=== PATIENT | female | born 1960 | race Caucasian/White ===

== ENCOUNTER → 2021-11-19 10:25 | Outpatient (CLI) | payer BC, SELFPAY ==
--- NOTE | ~2021-11-19 | XR_ITS ---
XR sacrum coccyx min 2V DATE: 11/19/2021 10:54 INDICATION: Sacrococcygeal disorder TECHNIQUE: AP, angled AP and lateral views of sacrum and coccyx COMPARISON: None FINDINGS: The pubic symphysis and sacroiliac joints are intact. Hip joint spaces are symmetric and re latively preserved. No sacral or coccygeal fracture or bone destruction is evident. IMPRESSION: No significant abnormality Reviewed, dictated and finalized at location B. IMPRESSION: No significant abnormality
== END ==
PROVIDERS: PCP Family Medicine; Visit Provider Physician Assistant
DX: M53.3 Sacrococcygeal disorders, not elsewhere classified (principal)
CPT/HCPCS: 72220

== ENCOUNTER 2021-12-02 12:07 | Outpatient (CLI) | payer BC, SELFPAY ==
--- NOTE | ~2021-12-02 | MR_ITS ---
EXAMINATION: MR sacrum wo/w con DATE: 12/02/2021 13:41 INDICATION: Sacrococcygeal disorder not elsewhere classified TECHNIQUE: Magnetic resonance imaging (MRI) of the sacrum and coccyx was performed without and with 2 0 mL Multihance intravenous contrast. Sequences included sagittal PD-weighted FS FSE, coronal obliqu e T2-weighted FS FSE, coronal oblique T1-weighted FSE, oblique axial T2-weighted FS FSE and oblique a xial T1-weighted FSE. COMPARISON: Radiographs dated 11/19/2021 FINDINGS: And moderate to severe disc height loss at L4-L5 with associated fibrofatty degenerative endplate mayo nges. Otherwise normal marrow signal. Eccentric to the left disc bulge at L3-L4 and L4-L5 and mild di sc bulge at L5-S1 with annular fissures at each level. This results in mild central canal stenosis at L3-L4. Lumbar facet osteoarthritis, mild bilaterally at L3-L4, L4-L5 and moderate bilaterally at L5- S1. Mild bilateral neural foraminal stenosis at L3-L4 and L5-S1, moderate bilateral neural foraminal at L4-L5. Mild bilateral sacroiliac osteoarthritis. No erosions or associated synovitis to suggest in flammatory sacroiliitis. Mild bilateral hip osteoarthritis. 12 x 6 x 4 mm T2 hyperintense and enhanci ng somewhat tubular lesion centered in the subcutaneous fat along the distal tip of the coccyx which appears contiguous with the draining veins along the ventral margin of the sacrum and coccyx.. There is mild edema and non masslike enhancement along the posterior margin of the dorsal spiculated tip of the coccyx. The bladder and visualized portions of the bowels are unremarkable. The uterus is not id entified and has likely been surgically resected. IMPRESSION: 1. Mild edema and non masslike enhancement likely inflammatory in etiology overlying a small posterio r spiculated the tip of the coccyx with likely associated adjacent mildly dilated draining vein. Thes e findings could be seen in setting of coccydynia. 2. Lumbar spondylosis moderate to severe spondylosis at L4-L5 and otherwise mild at the visualized mi d to lower lumbar spine. Reviewed, dictated and finalized at location B. IMPRESSION: 1. Mild edema and non masslike enhancement likely inflammatory in etiology over lying a small posterior spiculated the tip of the coccyx with likely associated adjacent mildly dilated draining vein. These findings could be seen in setting of coccydynia. 2. Lumbar spondylosis moderate to severe spondylosis at L4-L5 and otherwise mil d at the visualized mid to lower lumbar spine.
[2021-12-02 12:38] LABS: Estimated Glomerular Filt Rate > 60
== END 2021-12-02 12:08 | disposition home or self-care (01) ==
PROVIDERS: PCP Family Medicine; Visit Provider Physician Assistant
DX: M53.3 Sacrococcygeal disorders, not elsewhere classified (principal); M47.896 Other spondylosis, lumbar region
CPT/HCPCS: 72197; A9577

== ENCOUNTER → 2022-08-11 08:13 | Outpatient (CLI) | payer BC, SELFPAY ==
--- NOTE | ~2022-08-11 | US_ITS ---
US axilla LT 08/11/2022 08:36 Indication: Malignant melanoma of the forearm. Evaluate axilla for lymph nodes. Procedure: High-resolution ultrasound of the left axilla Comparison: No prior studies for comparison. Findings: There are mildly prominent lymph nodes in the left axilla, all of which retain their normal fatty hilum. The largest measures 2 x 1.8 x 0.9 cm. Impression: 1: Mildly prominent left axillary lymph nodes which retain normal fatty hilum. Metastatic disease not excluded. Reviewed, dictated and finalized at location A. OR [employer] Impression: 1: Mildly prominent left axillary lymph nodes which retain normal fatty hilum. Metastatic disease not excluded.
== END ==
PROVIDERS: PCP Family Medicine
DX: C43.62 Malignant melanoma of left upper limb, including shoulder (principal)
CPT/HCPCS: 76882

== ENCOUNTER 2022-11-26 08:22 | Outpatient (CLI) | payer BC, SELFPAY ==
--- NOTE | 2022-11-30 13:34 | WPDHOMESLEEP ---
Sleep Study - Home Unattended Date of Study: 11/26/22 Ordering Provider: YAKELIN Bill Interpreting Provider: Bertha Manley MD Home Sleep Study Type: Watch PAT Height: 1.68 m Weight: 106.141 kg Body Mass Index: 37.8 Neck Circumference (inches): 15 [place]: 2 Reason for Sleep Study Snoring, waking at night and not being able to return to sleep Sleep History Estela Arias is a 62-year-old female with loud snoring. She wakes up during the night for a couple of hours. She has a difficult time returning to sleep. She does not awaken from sleep feeling short of breath. She does not awaken at night with heartburn, belching or coughing. She frequently snores and occasionally it is loud enough that others complain about it. She occasionally has trouble sleeping with a cold. She does not wake up gasping for breath at night. She does not have breathing problems at night observed by others. She frequently sweats excessively at night. She occasionally notices her heart pounding or beating irregularly at night. She rarely falls asleep during the day. She does not fall asleep involuntarily or while driving. She does not have loss of muscle tone with strong emotion. She does not have daytime difficulties due to excessive sleepiness. She does not feel paralyzed on waking or falling asleep. She rarely has vivid dreamlike scenes upon awakening or falling asleep. She does not feel afraid to go to sleep. She occasionally has nightmares. She constantly remembers her dreams. She constantly has racing thoughts. She rarely feels sad or depressed. She rarely has anxiety. She rarely has muscular tension. She rarely notices parts of her body jerking. She does not kick at night. She does not have crawling or aching feelings in her legs. She does not have any kind of leg pain at night. She does not have morning jaw pain. She occasionally grinds her teeth during sleep. She frequently is bothered by pain during the day. She rarely is awakened by pain during the night. She occasionally wakes up feeling stiff in the morning. She does not wake up with sore achy muscles. She rarely wakes up with pain in the neck and spine. Normal bedtime is 9:00 p.m. falling asleep within 10 minutes. She typically wakes once at night to go to the bathroom. After this she reads for about a 1/2 hour on her Carlos adjusting it to twice a light colors which is less bright. It takes her sometimes 30 minutes to return to sleep and sometimes as long as 3 hours. She wakes the morning by 6:15 a.m.. Her weekend schedule is similar, bedtime is between 930 and 10:00 p.m., wake-up time is 6:30 a.m.. She estimates getting somewhere between 5 and 8 interrupted hours of sleep at night occasionally as many as 9 hours of sleep. She does not take naps in the afternoon or evening. She feels better in the afternoon compared to other times of day. Despite having fragmented sleep, she often awakens feeling refreshed. Habits: Never smoked tobacco. No caffeine, alcohol or recreational substances. [facility] Past Medical History Medical History Cervical cancer H/O bone density study (~2020) Hypothyroidism (~1991) Melanoma Mixed hyperlipidemia Normal colonoscopy (~2014) Ovarian cancer (~1991) Ovarian cyst (~1979) Type 2 diabetes mellitus without complication, without long-term current use of insulin Vitamin D deficiency Surgical History Surgical History History of hysterectomy (~1991) History of mandibular surgery (~1995) Hx of appendectomy (~1979) Hx of cholecystectomy (~2008) Family History Family History Mother Diabetes mellitus Hypertension Heart disease Thyroid disease Father Depression Diabetes mellitus Heart disease Dementia Sibling Heart disease Hypertension Grandparent Depressi
[2022-11-30 13:56] VITALS: BMI 37.8
== END 2022-11-27 12:02 | disposition home or self-care (01) ==
PROVIDERS: PCP Family Medicine; Visit Provider Physician Assistant
DX: G47.10 Hypersomnia, unspecified (principal); G47.33 Obstructive sleep apnea (adult) (pediatric)
CPT/HCPCS: 95800

== ENCOUNTER 2023-05-28 10:40 | Outpatient (CLI) | payer BC, SELFPAY ==
--- NOTE | ~2023-05-28 | XR_ITS ---
XR chest 2V DATE: 05/28/2023 11:11 INDICATION: Malignant melanoma of skin TECHNIQUE: PA and lateral views COMPARISON: None FINDINGS: Normal heart size. No hilar or mediastinal enlargement. No pulmonary infiltrate or consolid ation, pleural effusion or pulmonary vascular congestion or pneumothorax is detected. There is mild anterior wedging and loss of height of T8 which appears chronic. There is levoscoliosis and mild degenerative spurring of the thoracic spine. IMPRESSION: No active cardiopulmonary Reviewed, dictated and finalized at location L. T BAND SEWER IMPRESSION: No active cardiopulmonary
== END 2023-05-28 10:41 | disposition home or self-care (01) ==
LOC: ANHIMG 10:51
PROVIDERS: PCP Family Medicine; Visit Provider Physician Assistant
DX: C43.9 Malignant melanoma of skin, unspecified (principal)
CPT/HCPCS: 71046

== ENCOUNTER 2023-11-05 09:15 | Outpatient (RCR) | payer BC, SELFPAY ==
--- NOTE | 2023-10-02 09:33 | OPREHPOC ---
Outpatient Therapy Plan of Care This is a Multidisciplinary Plan of Care that may contain components documented by all disciplines (PT, OT, and ST.) PT Problem 1 PT Problem #1 Knowledge Deficit PT Goal 1 Goal 1. Patient will perform independent HEP Target Visit 2 PT Problem 2 PT Problem #2 Impaired Functional ADLs PT Goal 1 Goal 1. Pt will void no more than 8 times a day and 1 time at night 2. Pt will be able to hold urge to void at least 30 minutes 3. Pt will report no more than 2 instances of incontinence per week. PT Problem 3 PT Problem #3 Impaired Strength PT Goal 1 Goal 1. Improve pelvic floor strength to 4/5 to decrease incontinence 2. Improve pelvic floor endurance to 10 seconds to decrease incontinence
--- NOTE | 2023-10-02 09:33 | PTOPEVAL1 ---
Assessment and note entered by Karissa Rushing DPT Evaluation Information Assessment Status Evaluation Subjective Information Pt reports urinary incontinence. Dramatically worsened in the last 3 months. Incontinence daily, usually just once and volume is small but occasionally does have to change her clothes. Notices incontinence with walking, waiting too long to void, coughing, sneezing, lifting. Voids more than 10 times a day, 1-2 times at night. Can hold urge to void 10-15 minutes depending on the situation. Not wearing pads most of the time, trying to avoid it. Pain with urination very infrequently. BM usually daily, no pain. Does report abdominal/pelvic pain and pressure with walking. Highest pain 6/10 and lowest 0/10. Previously has had pain with intercourse, tampon, and pap smear. Complete hysterectomy 1991. Reports a diagnosis of IBS but has not had many symptoms currently. Pt has been 3 times ( miscarried 1 twin of 1st ), 3 vaginal deliveries. 4th degree tear with her first. Pt reports disrupted sleep due to frequent urination, has to take breaks between activities like doing dishes and cooking in order to avoid incontinence. Patient goal: learn exercises, not leak urine as often Returns to MD in October. Reported Pain Level Pain Score 0: Self Report Assessment PT Clinical Summary The patient is presenting to skilled therapy with worsening urinary incontinence over the last 3 months and also reports a history of pelvic pain. She presents with decreased pelvic floor strength and endurance, as well as decreased core and hip strength which are contributing to her incontinence and difficulty performing all normal ADLs. She will highly benefit from skilled therapy to address these impairments in order to reduce incontinence and improve function. Plan of Care Interventions Manual Therapy,Neuro Re-education,Patient/ Caregiver Education,Therapeutic Activities, Therapeutic Exercise PT Services Indicated Yes Treatment Frequency and 1 time a week for 5 visits Duration These treatments will address the objective and functional deficits as defined above. The patient will be advanced safely and appropriately in order for t
--- NOTE | 2023-11-05 09:49 | OPREHPOC ---
Outpatient Therapy Plan of Care This is a Multidisciplinary Plan of Care that may contain components documented by all disciplines (PT, OT, and ST.) PT Problem 1 PT Problem #1 Knowledge Deficit PT Goal 1 Goal 1. Patient will perform independent HEP Target Visit 2 Progress Met PT Problem 2 PT Problem #2 Impaired Functional ADLs PT Goal 1 Goal 1. Pt will void no more than 8 times a day and 1 time at night 2. Pt will be able to hold urge to void at least 30 minutes 3. Pt will report no more than 2 instances of incontinence per week. Target Visit 5 Progress Met PT Problem 3 PT Problem #3 Impaired Strength PT Goal 1 Goal 1. Improve pelvic floor strength to 4/5 to decrease incontinence 2. Improve pelvic floor endurance to 10 seconds to decrease incontinence Target Visit 5 Progress Partially Met
--- NOTE | 2023-11-05 09:49 | PTOPDC ---
Assessment and note entered by Karissa Rushing DPT Evaluation Information Assessment Status Discharge Subjective Information Pt reports she feels therapy is helping and has not had incontinence since her first week in therapy. Can hold urge to void 20-30 minutes depending on the situation and thinks she is voiding 7 times a day and 1 time at night. Reported Pain Level Pain Score 0: Self Report Assessment PT Clinical Summary The patient has made excellent progress in therapy and reports no incontinence since her first week in therapy. She demonstrates improved pelvic floor strength and also reports an improved ability to hold urge and decreased frequency to within a normal range. Due to her progress, plan for discharge at this time. She has been educated to continue HEP to continue progressing independently and to follow up with PT and/or MD as needed. Plan of Care PT Services Indicated No
== END 2023-11-05 10:33 | disposition home or self-care (01) ==
LOC: ANHPT 09:15
PROVIDERS: PCP Family Medicine; Visit Provider Family Medicine
DX: R32 Unspecified urinary incontinence (principal)
CPT/HCPCS: 97112; 97161; 97530

== ENCOUNTER 2024-01-22 10:46 | Emergency (ER) | payer BC, SELFPAY ==
[2024-01-22 10:56] VITALS: BP 145/72; PULSE 61; RESP 16; TEMP 36.2; O2SAT 98
--- NOTE | 2024-01-22 10:58 | ED.EXTPRO ---
HPI - Extremity Problem General Chief complaint: Extremity Problem,Nontraumatic Stated complaint: left knee pain Time Seen by Provider: 01/22/24 11:19 Source: patient, RN notes reviewed and old records reviewed Mode of arrival: ambulatory Limitations: no limitations History of Present Illness HPI Narrative: 63 year female presents to the [facility] with complaints of left knee pain for several weeks, worse today. Pain is worse with standing. Does have good range of motion. Mild swelling noted to the medial aspect. Patient did tape it. No bruising noted. No tenderness to palpation Related Data Home Medications Medication Instructions Recorded Confirmed magnesium glycinate 100 mg (as 250 mg PO DAILY 05/22/22 01/22/24 glycinate) tablet omega-3 fatty acids-fish oil 360 1 cap PO BID 05/22/22 01/22/24 mg-1,200 mg capsule (Fish Oil) ascorbate calcium (vitamin C) 500 500 mg PO DAILY 08/25/23 01/22/24 mg tablet lactobacillus combination no.4 3 3,000 mmu cells PO DAILY 08/25/23 01/22/24 billion cell capsule (Probiotic) Allergies Allergy/AdvReac Type Severity Reaction Status Date / Time latex AdvReac Mild RASH Verified 01/22/24 10:55 Sulfa (Sulfonamide AdvReac Mild Rash Verified 01/22/24 10:55 Antibiotics) flu shots Allergy Severe Anaphylaxis Uncoded 01/22/24 10:55 Review of Systems Review of Systems: All systems reviewed & are unremarkable except as noted in HPI and below Constitutional: Constitutional: Reports no additional constitutional complaints Eyes: Eyes: Reports no additional eye complaints ENT: Reports system reviewed and no additional complaints, except as documented Cardiovascular: Cardiovascular: Reports no additional cardiovascular complaints, Denies chest pain and Denies dyspnea Respiratory: Respiratory: Reports no additional respiratory complaints, Denies chest congestion, Denies cough and Denies dyspnea Gastrointestinal: Gastrointestinal: Reports no additional gastrointestinal complaints, Denies abdominal pain, Denies nausea and Denies vomiting Musculoskeletal: Musculoskeletal: Reports as per HPI, Reports arthralgias and Reports joint swelling Integumentary/Breasts: Skin/Breast: Reports system reviewed and no additional complaints, except as docu Neurologic: Reports system reviewed and no additional complaints, except as documented Psychiatric: Psychiatric: Reports no additional psychiatric complaints Allergic/Immunologic: Allergic/Immunologic: Reports no additional allergic/immunologic complaints PMFSH Past Medical History Medical History Body mass index (BMI) of 38.0 to 38.9 in adult Cervical cancer H/O bone density study (~2020) Hypothyroidism (~1991) Malignant melanoma of left forearm Melanoma Mixed hyperlipidemia Normal colonoscopy (~2014) Ovarian cancer (~1991) Ovarian cyst (~1979) Type 2 diabetes mellitus without complication, without long-term current use of insulin Vitamin D deficiency Surgical History Surgical History History of hysterectomy (~1991) History of mandibular surgery (~1995) Hx of appendectomy (~1979) Hx of cholecystectomy (~2008) Family History Family History Mother Diabetes mellitus Hypertension Heart disease Thyroid disease Father Depression Diabetes mellitus Heart disease Dementia Sibling Heart disease Hypertension Grandparent Depression Heart disease Hypertension Other Family history of arthritis Social History Social History Social History: Never smoker. She does not use alcohol, marijuana, or illicit substances. Smoking status: Never smoker Second hand tobacco smoke exposure: No Alcohol intake: never Substance use: never Substance use type: does not use Do You Feel Safe in your Home?:
== END 2024-01-22 11:37 | disposition home or self-care (01) ==
PROVIDERS: Emergency Provider Nurse Practitioner; PCP Family Medicine
DX: M25.562 Pain in left knee (principal); M25.462 Effusion, left knee; E03.9 Hypothyroidism, unspecified; E78.2 Mixed hyperlipidemia; E11.9 Type 2 diabetes mellitus without complications; Z85.41 Personal history of malignant neoplasm of cervix uteri; Z85.820 Personal history of malignant melanoma of skin; Z85.43 Personal history of malignant neoplasm of ovary
CPT/HCPCS: 99212; G0463

== ENCOUNTER 2024-01-26 11:12 | Outpatient (CLI) | payer BC, SELFPAY ==
--- NOTE | ~2024-01-26 | US_ITS ---
Thyroid ultrasound. Clinical History: Nontoxic goiter Findings: Real-time sonography of the thyroid gland was performed. The right lobe measures 1.9 x 0.7 x 0.7 cm. The left lobe measures 1.9 x 0.7 x 0.9 cm. The isthmus is 2 mm in AP diameter. Impression: Small thyroid gland, without identifiable nodule.. Reviewed, dictated and finalized at location . Impression: Small thyroid gland, without identifiable nodule..
== END 2024-01-26 11:13 ==
PROVIDERS: PCP Family Medicine; Visit Provider Internal Medicine Endocrinology, Diabetes & Metabolism
DX: E04.9 Nontoxic goiter, unspecified (principal); Z80.8 Family history of malignant neoplasm of other organs or systems
CPT/HCPCS: 76536

== ENCOUNTER 2024-04-29 13:19 | Emergency (ER) | payer BC, SELFPAY ==
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
[2024-04-29 13:21] VITALS: BP 138/99; PULSE 74; RESP 18; TEMP 36.4; O2SAT 98
[2024-04-29 13:34] VITALS: BP 154/83; PULSE 63; RESP 18; TEMP 36.5; O2SAT 95
[2024-04-29 14:30] VITALS: BP 128/70; PULSE 59; RESP 16; O2SAT 98
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
[2024-04-29] MEDS: oxyCODONE HCL (*CRX) 5 MG TAB IR PO (15:26)
[2024-04-29] MEDS: ACETAMINOPHEN 500 MG TABLET 1000 MG PO (15:26)
[2024-04-29] MEDS: KETOROLAC (*BKC) 60 MG/2 ML VIAL IM (15:27)
[2024-04-29 15:30] VITALS: BP 153/67; PULSE 66; RESP 16; O2SAT 98
[2024-04-29 16:00] VITALS: BP 156/78; PULSE 65; RESP 16; O2SAT 100
== END 2024-04-29 16:11 | disposition home or self-care (01) ==
PROVIDERS: Emergency Provider Physician Assistant; PCP Family Medicine
DX: S52.572A Other intraarticular fracture of lower end of left radius, initial encounter for closed fracture (principal); E03.9 Hypothyroidism, unspecified; E11.9 Type 2 diabetes mellitus without complications; E78.2 Mixed hyperlipidemia; E55.9 Vitamin D deficiency, unspecified; Z85.43 Personal history of malignant neoplasm of ovary; Z85.828 Personal history of other malignant neoplasm of skin; Z85.41 Personal history of malignant neoplasm of cervix uteri; Z90.49 Acquired absence of other specified parts of digestive tract; Z90.710 Acquired absence of both cervix and uterus; Z79.899 Other long term (current) drug therapy; V18.4XXA Pedal cycle driver injured in noncollision transport accident in traffic accident, initial encounter; Y93.55 Activity, bike riding
CPT/HCPCS: 29125; 73110; 96372; 99284; A4565; A9270; J1885

== ENCOUNTER 2024-06-27 13:56 | Emergency (ER) | payer BC, SELFPAY ==
--- NOTE | ~2024-06-27 | XR_ITS ---
EXAMINATION: XR tibia fibula LT 2V DATE: 06/27/2024 16:00 INDICATION: Fall with left lower leg injury TECHNIQUE: Anteroposterior and lateral views of the left tibia and fibula were obtained. COMPARISON: None. FINDINGS: Soft tissue swelling anterior to the proximal tibia. Bone alignment is normal. No fracture. Mild oste oarthritis at the left knee. Subcutaneous varicosities along the medial aspect of the calf. IMPRESSION: 1. No acute osseous abnormality. Reviewed, dictated and finalized at location A. STICS TEACHER
[2024-06-27 14:00] VITALS: BP 166/94; PULSE 71; RESP 17; TEMP 36.4; O2SAT 98
--- NOTE | 2024-06-27 16:11 | ED.LOWEXIN ---
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 patient states she was going down her stairs and missed the last step and hit her left lower leg. patient denies hitting head or LOC. patient having lower leg pain. no other complaints Onset (ago): hour(s) (4) Type of Injury: blunt Place: home Related Data Home Medications ?Medication ?Instructions ?Recorded ?Confirmed ?Last Taken ?Type magnesium glycinate 100 mg (as 250 mg PO DAILY 05/22/22 06/21/24 Unknown History glycinate) tablet omega-3 fatty acids-fish oil 360 1 cap PO BID 05/22/22 06/21/24 Unknown History mg-1,200 mg capsule (Fish Oil) ascorbate calcium (vitamin C) 500 500 mg PO DAILY 08/25/23 06/21/24 Unknown History mg tablet lactobacillus combination no.4 3 3,000 mmu cells PO DAILY 08/25/23 06/21/24 Unknown History billion cell capsule (Probiotic) multivitamin (Daily Multi-Vitamin 1 tablet PO DAILY 05/03/24 06/21/24 Unknown History tablet) Allergies Allergy/AdvReac Type Severity Reaction Status Date / Time latex AdvReac Mild RASH Verified 06/27/24 13:56 Sulfa (Sulfonamide AdvReac Mild Rash Verified 06/27/24 13:56 Antibiotics) flu shots Allergy Severe Anaphylaxis Uncoded 06/27/24 13:56 Review of Systems Review of Systems: All systems reviewed & are unremarkable except as noted in HPI and below Musculoskeletal: Musculoskeletal: Reports as per HPI (Left lower leg pain) [facility] Past Medical History Medical History Body mass index (BMI) of 38.0 to 38.9 in adult Malignant melanoma of left forearm Melanoma H/O bone density study (~2020) Normal colonoscopy (~2014) Ovarian cyst (~1979) Cervical cancer Ovarian cancer (~1991) Mixed hyperlipidemia Hypothyroidism (~1991) Type 2 diabetes mellitus without complication, without long-term current use of insulin Vitamin D deficiency Surgical History Surgical History History of open reduction and internal fixation (ORIF) procedure Left wrist fracture 04/2024 at [facility] Hx of cholecystectomy (~2008) History of mandibular surgery (~1995) History of hysterectomy (~1991) Hx of appendectomy (~1979) Family History Family History Mother Diabetes mellitus Hypertension Heart disease Thyroid disease Father Depression Diabetes mellitus Heart disease Dementia Sibling Heart disease Hypertension Grandparent Depression Heart disease Hypertension Other Family history of arthritis Social History Social History Social History: Never smoker. She does not use alcohol, marijuana, or illicit substances. Smoking status: Never smoker Second hand tobacco smoke exposure: No Alcohol intake: never Substance use: never Substance use type: does not use Do You Feel Safe in your Home?: Yes Lack of Transportation: No Lack of Food: Never True Current Housing: I Have Housing Concerned About Future Housing: No Difficulty Paying Gas/Electric Bills: No Difficulty Paying for Meds: No Currently Unemployed: No Education: Associate Degree Difficulty w/ Childcare or Family Care: No Living arrangements: with family Occupation/Education: retired Gender identity (if verbalized by the patient): Female Exam Narrative: GENERAL: Well-appearing, well-nourished, and in no acute distress. HEAD: Normocephalic, atraumatic. EYES: PERRLA and EOMI. ENT: Nares clear, no rhinorrhea or epistaxis. Mucous membranes moist. NECK: Supple. CHEST: Clear to auscultation. No respiratory distress. HEART: Regular rate and rhythm. No murmur heard. Normal peripheral pulses. ABDOMEN: Soft, nontender, nondistended, normal active bowel sounds. EXTREMITIES: Normal range of motion. No edema. Tenderness to left lower tib/fib to lateral aspect. +pulses distal SKIN: Warm, dry, no rash. NEURO: No focal deficits. Alert and oriented x3. PSYCH: Normal mood and affect. Course Course Emergency Course: Imaging negative. Will discharge with rice therapy Vital Signs Vital signs: Vital Signs Temperature 36.4 C 06/27/24 14:00 Pulse Rate 71 06/27/24 14:00 Respiratory Rate 17 06/27/24 14:00 Blood Pressure 166/94 H 06/27/24 14:00 Pulse Oximetry 98 06/27/24 14:00 Oxygen Delivery Room Air 06/27/24 14:00 Temperature 36.4 C 06/27/24 14:00 Pulse Rate 71 06/27/24 14:00 Respiratory Rate 17 06/27/24 14:00 Blood Pressure 166/94 H 06/27/24 14:00 Pulse Oximetry 98 06/27/24 14:00 Oxygen Delivery Room Air 06/27/24 14:00 MDM - Extremity Injury (Lower) MDM Narrative Medical decision making narrative: Continue rice therapy. Patient to be discharged home with Discharge Plan Discharge Clinical Impression: Contusion of left lower extremity, Fall Patient Disposition: Home, Self-Care Condition: Stable Instructions: Antibiotic Form, Contusion in Adults (ED) Additional Instructions: Take Motrin for pain Apply ice 4 times a day 20 minutes at Return for any worsening signs Patient Language: Serbian Prescriptions: No Action omega-3 fatty acids-fish oil [Fish Oil] 360-1,200 mg capsule 1 cap PO BID magnesium glycinate 100 mg tablet 250 mg PO DAILY ascorbate calcium (vitamin C) 500 mg tablet 500 mg PO DAILY Probiotic 3 billion cell capsule 3,000 mmu cells PO DAILY Rx Instructions: administer with a meal dapagliflozin propanediol [Farxiga] 5 mg tablet 5 mg PO QAM Qty: 90 2RF levothyroxine [Tirosint] 137 mcg capsule 137 mcg PO DAILY Qty: 90 1RF (DME) OneTouch Ultra Test Strip See Rx Instructions .Route Qty: 200 1RF Rx Instructions: check twice daily fluconazole 150 mg tablet 150 mg PO ONCE PRN (Reason: vaginal candidiasis) Qty: 1 0RF Rx Instructions: as a single dose multivitamin [Daily Multi-Vitamin] Tablet 1 tablet PO DAILY (DME) blood-glucose meter [OneTouch Ultra2 Meter] Misc See Rx Instructions .Route Qty: 1 0RF Rx Instructions: As directed (DME) lancing device with lancets [OneTouch Delica Plus Lanc Dev] Kit See Rx Instructions .Route Qty: 1 0RF Rx Instructions: As directed (DME) lancets [OneTouch Delica Plus Lancet] 33 gauge misc See Rx Instructions .Route Qty: 200 1RF Rx Instructions: check twice daily ergocalciferol (vitamin D2) [Vitamin D2] 1,250 mcg (50,000 unit) capsule 50,000 unit PO WEEKLY Qty: 12 3RF Follow-up/Referrals: Ceci Santiago MD [Primary Care Provider] - Time of Disposition: 16:18
== END 2024-06-27 16:30 | disposition home or self-care (01) ==
PROVIDERS: Emergency Provider Nurse Practitioner Family; PCP Family Medicine
DX: S80.12XA Contusion of left lower leg, initial encounter (principal); E78.2 Mixed hyperlipidemia; E03.9 Hypothyroidism, unspecified; E11.9 Type 2 diabetes mellitus without complications; E55.9 Vitamin D deficiency, unspecified; Z85.43 Personal history of malignant neoplasm of ovary; Z85.41 Personal history of malignant neoplasm of cervix uteri; Z85.820 Personal history of malignant melanoma of skin; Z90.49 Acquired absence of other specified parts of digestive tract; Z90.710 Acquired absence of both cervix and uterus; Z79.899 Other long term (current) drug therapy; W10.9XXA Fall (on) (from) unspecified stairs and steps, initial encounter
CPT/HCPCS: 73590; 99283

== ENCOUNTER 2024-09-12 01:52 | Day surgery (SDC) | payer BC, SELFPAY ==
[2024-08-15 08:37] VITALS: BMI 41.5
--- OUTSIDE RECORDS SUMMARY | 2024-08-29 01:45 | XMS_ITS | Clinical Summary ---
Author Organization [facility] Address [address] [place] [address] Care Team Providers Care Home Care Specialist Name Role Phone Ceci Santiago MD Primary Care Provider [phone] Liliana Lucas MD Unavailable [phone] Allergies Active Allergy Reactions Criticality Noted Date Comments Adhesive Tape-Silicones Rash Medium 06/09/2018 Influenza Virus Vaccines Other (See comments) Low 05/10/2024 WHITE BLOOD CELL COUNT ELEVATED EXTREMELY HIGH REQUIRING HOSPITALIZATION Latex Rash Medium 08/24/2017 Sulfa (Sulfonamide Antibiotics) Rash Medium 08/24/2017 Medications VITAMIN D2 50,000 unit capsuleIndicat ions:Vitamin D Deficiency Take 1 capsule (50,000 Units total) by mouth once a week thursday01/16/20 18 Active Lactobac no.41/Bifidoba ct no.7 (PROBIOTIC-10 ORAL)Indicatio ns:health Take 1 tablet by mouth daily before breakfast Active turmeric root extract 500 mg capsuleIndicat ions:health Take 1,000 mg by mouth daily after lunch Active UNABLE TO FINDIndication s:pre Take 2 each by mouth every morning Med Name: berberine Active vitamin E 200 unit capsuleIndicat ions:health Take 1 capsule (200 Units total) by mouth daily after lunch Active ascorbic acid (ascorbic acid with stephen hips) 500 mg tablet,chewabl eIndications:h ealth Take 1 tablet/chew tab (500 mg total) by mouth daily after lunch Active zinc 50 mg tabletIndicati ons:health Take 1 capsule by mouth daily after lunch Active fish oil-dha-epa 1,200-144-216 mg capsuleIndicat ions:health Take 2 capsules by mouth daily after lunch Active multivitamin tabletIndicati ons:Vitamin Deficiency Prevention Take 1 tablet by mouth child development professor before breakfast Active [place] Thyroid 90 mg tablet Take 1 tablet (90 mg total) by mouth child development professor before breakfast 05/04/20 24 025 Discontinued Active Problems Problem Noted Date Diagnosed Date Closed fracture of left distal radius 05/04/2024 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 023 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 04/13/2018 Overview (04/13/2018): Added automatically from request for surgery [id number] Encounters Date Type Department Care Team Description 08/24/2024 1:50 PM SALES FORECAST ANALYST Office Visit [facility] Orthopaedic Surgery [address] [place] [address] [address]nd [address] [place] [phone] Herb Morley MD Left wrist pain (Primary Dx) 08/24/2024 12:10 PM SALES FORECAST ANALYST - 08/24/2024 11:59 PM SALES FORECAST ANALYST Hospital Encounter [facility] [address] [place] [phone] Left wrist pain Discharge Disposition: Discharge to home or self care 07/01/2024 9:30 AM SALES FORECAST ANALYST Therapy [facility] Physical Therapy [address] [place] [address] 6th [place] [address] [place] [address] Laurie Peng DPT Intra-articular fracture of distal end of left radius with volar angulation with routine healing, subsequent encounter (Primary Dx) 07/01/2024 8:10 AM SALES FORECAST ANALYST Office Visit [facility] [address] [place] [address] 6th [place] [address] [place] [address] Herb Morley MD Intra-articular fracture of distal end of left radius with volar angulation, initial encounter (Primary Dx) 07/01/2024 7:14 AM SALES FORECAST ANALYST - 07/01/2024 11:59 PM SALES FORECAST ANALYST Hospital Encounter [facility] [address] [place] [address] Intra-articular fracture of distal end of left radius with volar angulation, initial encounter Discharge Disposition: Discharge to home or self care 06/28/2024 Orders Only [facility] [address] [facility] 6th [place] [address] [place] [address] Herb Morley MD Intra-articular fracture of distal end of left radius with volar angulation, initial encounter (Primary Dx) from Last 3 Months Surgical History Surgery Date Site/Laterality Comments VARICOSE VEIN SURGERY 11/10/2017 - 12/10/2017 Left 11/2017 Left greater saphenous vein ABLATION SAPHENOUS VEIN W/ RFA 05/13/2018 - 06/11/2018 Right OVARIAN CYSTECTOMY 07/13/1978 - 07/12/1979 Bilateral APPENDECTOMY 07/13/1978 - 07/12/1979 TEMPOROMANDIBULAR JOINT SURGERY 07/13/1993 - 07/12/1994 Bilateral CHOLECYSTECTOMY 07/13/2005 - 07/12/2006 TOTAL ABDOMINAL HYSTERECTOMY W/ BILATERAL SALPINGOOPHORECTOMY 07/13/1991 - 07/12/1992 COLONOSCOPY Multiple BREAST BIOPSY 01/05/2023 Right TUBAL LIGATION 1990 MELANOMA RESECTION 07/13/2022 - 07/12/2023 Left wrist Medical History Medical History Date Comments Hyperlipidemia Treated with sta tin Generalized OA Vitamin D deficiency History of cervical cancer 1992 s/p T AH with BSO, chemo/radiation 1991 Hypothyroidism Varicose veins of both lower extremities s/p vein stripping and stab venectomy LLE 11/2017 and RF ablation RLE 05/2018 Type II diabetes mellitus (HCC) Dxd 2012-- Currently treated with metformin and diet-- Last HbA1C= 6.4% at PCP office 12/28/2017 Morbid obesity (HCC) History of ovarian cancer 1992 s/p TA H/BSO, chemo and radiation 1991 PONV (postoperative nausea and vomiting) controlled with IV medication At risk for obstructive sleep apnea Per assessment, STOP BANG= 3 and CO2= 28 on 06/09/2018 Migraines 2010 Sleep apnea 2021 Autoimmune disease (CMS/HCC) (HCC) 2021 Cancer (CMS/HCC) (HCC) Family History Medical History Relation Name Comments Arthritis Father Phong Corea Bipolar disorder Father Phong Corea Family hi story of bipolar disorder - (Added by TW Conv) Diabetes Father Phong Corea Arthritis Mother Telma Corea Diabetes Mother Telma Corea Family history of diabetes mellitus - (Added by TW Conv) Deep vein thrombosis Sister 1 Family history of deep venous thrombosis - (Added by TW Conv) Pulmonary embolism Sister 2 Family hi story of pulmonary embolism - (Added by TW Conv) Anesthesia problems Neg Hx Relation Name Status Comments Father Phong Corea Alive Mother Telma Corea Alive Sister 1 Sister 2 Social History Tobacco Use Types Packs/Day Years Used Date Smoking Tobacco: Never Cigarettes Smokeless Tobacco: Never Tobacco Cessation:Counseling Given: Not Answered Alcohol Use Standard Drinks/Week Comments No 0 (1 standard drink = 0.6 oz pur e alcohol) AUDIT-C Answer Date Recorded Q1: How often do you have a drink containing alcohol? Never 05/10/2024 Q2: How many drinks containi ng alcohol do you have on a typical day when you are drinking? Patient does not drink Q3: How often do you have si x or more drinks on one occasion? Never 05/10/2024 Personal Safety Answer Date Recorded Have you ever been in or are you currently in a harmful physical or emotional relationship or is someone making you feel afraid or unsafe? Denies 05/10/2024 Comments No Sex and Gender Information Value Date Recorded Sex Assigned at Not on file Legal Sex Female 6:41 AM SALES FORECAST ANALYST Gender Identity Female 03/26/2018 10:10 AM CDT Sexual Orientation Not on file Obstetrics History Last Filed Vital Signs Vital Sign Reading Time Taken Comments Blood Pressure 144/82 05/10/2024 10:30 AM CDT Pulse 71 05/10/2024 10:30 AM CDT Temperature 36 C (96.8 F) 05/10/2024 10:05 AM CDT Respiratory Rate 23 05/10/2024 10:30 AM CDT Oxygen Saturation 93% 05/10/2024 10:30 AM CDT Inhaled Oxygen Concentration - - Weight 117.9 kg (260 lb) 05/10/2024 6:05 AM CDT Height 165.1 cm (5' 5 ) 05/10/2024 6:05 AM CDT Body Mass Index 43.27 05/10/2024 6:05 AM CDT Plan of Treatment Health Maintenance Due Date Last Done Comments Colon Cancer Screening-Colonoscopy 1962 Depression Screening 1962 Hepatitis C Screening 1962 DTaP/Tdap/Td Vaccine (1 - Tdap) 1973 Hepatitis B Screening 1980 Regular Well Visit/Exam 18-64 1980 Influenza Vaccine (#1) 2024 Breast Cancer Screening-Mammogram 12/09/2024 12/10/2023, 10/29/2022, 08/19/2021, Additional history exists Zoster Vaccine Completed 05/04/2019, 02/07/2019 Pneumococcal vaccine <65 Aged Out No longer eligible based on patient's age to complete this topic Medical Devices Implanted Type Area Appeals Referee Device Identifier Shelf Expiration Date Model / Serial / Lot Allosource Cubes Graft 15ml Bone Cancellous [id number] - [id number] - [id number] Implanted:Qty: 1 on 05/10/2024 by Herb Morley MD at [facility] Graft Left: Radius Allosource 04/20/2027 [id number] / [id number] / [id number] [employer] Plate Bone Avulsion Hook 0.8mm Titanium Nonsterile [id number] - [id number] Implanted:Qty: 1 on 05/10/2024 by Herb Morley MD at [facility] Plate Left: Radius [employer] [id number] / / [employer] Eviva 13cm Identifier Biopsy Site Ajjyf-Suxex-14 - [id number] Implanted:Qty: 1 on 01/05/2023 at [facility] Right: Breast [employer] [id number] 08/07/2023 SMARRogerio-EVIVA -13 / / [id number] [employer] Acu-Loc 2 [id number] Variable Angle Radius Left Volar Distal Narrow 70-035 - [id number] Implanted:Qty: 1 on 05/10/2024 by Herb Morley MD at [facility] Left: Radius [employer] [id number] / / [employer] 3.5mm 12mm Hexalobe Screw Bone Titanium Nonsterile Small Fragment [id number] - [id number] Implanted:Qty: 3 on 05/10/2024 by Herb Morley MD at [facility] Left: Radius [employer] [id number] / / [employer] 2.3mm 18mm Lock Hexagonal Cortical Full Thread Screw Bone Co-T2318 - [id number] Implanted:Qty: 1 on 05/10/2024 by Herb Morley MD at [facility] Left: Radius [employer] CO-T2318 / / [employer] 2.3mm 20mm Lock Hexagonal Cortical Full Thread Screw Bone Co-T2320 - [id number] Implanted:Qty: 2 on 05/10/2024 by Herb Morley MD at [facility] Left: Radius [employer] CO-T2320 / / [employer] 2.3mm 16mm Lock Hexagonal Cortical Full Thread Screw Bone Co-T2316 - [id number] Implanted:Qty: 1 on 05/10/2024 by Herb Morley MD at [facility] Left: Radius [employer] CO-T2316 / / [employer] 2.3mm 18mm Nontoggle Hexagonal Cortical Screw Bone Titanium Co-N2318 - [id number] Implanted:Qty: 1 on 05/10/2024 by Herb Morley MD at [facility] Left: Radius [employer] CO-N2318 / / Procedures Procedure Name Priority Date/Time Associated Diagnosis Comments XR WRIST LEFT 3 OR MORE VIEWS Schedule Routine, Read Routine (OP Routine) 08/24/2024 12:13 PM SALES FORECAST ANALYST Left wrist pain XR WRIST LEFT 3 OR MORE VIEWS Schedule Routine, Read Routine (OP Routine) 07/01/2024 7:29 AM SALES FORECAST ANALYST Intra-articular fracture of distal end of left radius with volar angulation, initial encounter SCREENING MAMMOGRAM BILATERAL W CHON Schedule Routine, Read Routine (OP Routine) 12/10/2023 10:35 AM CDT Screening mammogram, encounter for from Last 3 Months or Most Recently Relevant to Health Maintenance Results * X-ray wrist left 3+ views (08/24/2024 12:13 PM SALES FORECAST ANALYST) Anatomical Region Laterality Modality Upper Extremities, Wrist Left Compute d Radiography 08/24/2024 12:4 2 PM SALES FORECAST ANALYST Impressions 08/24/2024 12:42 PM SALES FORECAST ANALYST 1. Healed, internally fixated distal left radius fracture 2. Polyarticular osteoarthritis of the left wrist Electronically signed by: Мария Vegas MD Narrative 08/24/2024 12:42 PM SALES FORECAST ANALYST EXAMINATION: XR WRIST LEFT 3 OR MORE VIEWS HISTORY: Left wrist fracture, follow-up FINDINGS: 3 radiographs of the left wrist are compared to 07/01/2024. The reduced and internally fixated distal left radius fracture appears healed. The instrumentation is intact. No new acute fracture is identified. There is polyarticular osteoarthritis in the left wrist, greatest and moderate at the thumb carpometacarpal and triscaphe joints. Mild persistent soft tissue swelling is seen about the wrist. Procedure Note Maria Ines Vegas MD - 08/24/2024 EXAMINATION: XR WRIST LEFT 3 OR MORE VIEWS HISTORY: Left wrist fracture, follow-up FINDINGS: 3 radiographs of the left wrist are compared to 07/01/2024. The reduced and internally fixated distal left radius fracture appears healed. The instrumentation is intact. No new acute fracture is identified. There is polyarticular osteoarthritis in the left wrist, greatest and moderate at the thumb carpometacarpal and triscaphe joints. Mild persistent soft tissue swelling is seen about the wrist. IMPRESSION: 1. Healed, internally fixated distal left radius fracture 2. Polyarticular osteoarthritis of the left wrist Electronically signed by: Мария Vegas MD Herb Morley MD IMG XR PROCEDURES Final Re sult * X-ray wrist left 3+ views (07/01/2024 7:29 AM SALES FORECAST ANALYST) Anatomical Region Laterality Modality Upper Extremities, Wrist Left Compute d Radiography 07/01/2024 7:32 AM SALES FORECAST ANALYST Impressions 07/01/2024 7:32 AM SALES FORECAST ANALYST 1. Healing reduced and internally fixated comminuted intra-articular distal left radius fracture. 2. Unchanged mild left base of thumb osteoarthritis. Electronically signed by: Kp Walker M.D. Narrative 07/01/2024 7:32 AM SALES FORECAST ANALYST EXAMINATION: XR WRIST LEFT 3 OR MORE VIEWS HISTORY: Distal radius fracture follow-up FINDINGS: 3 view examination of the left wrist is read with comparison to 04/29/2024. Healing reduced and internally fixated comminuted intra-articular distal left radius fracture stabilized by volar plate and screw construct. Implant is intact. There is disuse osteopenia. No new fracture. Mild triscaphe and 1st carpometacarpal osteoarthritis are unchanged. Mild soft tissue swelling. Procedure Note Kp Martin MD - 07/01/2024 EXAMINATION: XR WRIST LEFT 3 OR MORE VIEWS HISTORY: Distal radius fracture follow-up FINDINGS: 3 view examination of the left wrist is read with comparison to 04/29/2024. Healing reduced and internally fixated comminuted intra-articular distal left radius fracture stabilized by volar plate and screw construct. Implant is intact. There is disuse osteopenia. No new fracture. Mild triscaphe and 1st carpometacarpal osteoarthritis are unchanged. Mild soft tissue swelling. IMPRESSION: 1. Healing reduced and internally fixated comminuted intra-articular distal left radius fracture. 2. Unchanged mild left base of thumb osteoarthritis. Electronically signed by: Kp Walker M.D. Herb Morley MD IMG XR PROCEDURES Final Re sult * Screening Mammogram Bilateral W Chon (12/10/2023 10:35 AM CDT) Anatomical Region Laterality Modality Breast Bilateral Mammography Narrative 12/11/2023 4:39 PM CDT Mammogram Technique: Bilateral Digital Breast Tomosynthesis, Bilateral C-view 2D Screening mammogram. Views obtained: bilateral craniocaudal and bilateral mediolateral oblique. Computer Aided Detection was performed. Mammogram Findings: The present examination has been compared to prior imaging studies performed at [facility] on 12/29/2022, and at [facility] on 08/19/2021 and 10/29/2022. There are scattered areas of fibroglandular density. There is asymmetry in the inner breast on the craniocaudal view of the left breast. There is no suspicious abnormality in the right breast. Impression: Asymmetry in the left breast requires additional evaluation. Diagnostic mammogram and possible ultrasound of the left breast are recommended at this time. OVERALL FINAL ASSESSMENT: BI-RADS CATEGORY 0: Incomplete: Need additional imaging evaluation. Procedure Note Tiffany Hamm MD - 12/11/2023 Mammogram Technique: Bilateral Digital Breast Tomosynthesis, Bilateral C-view 2D Screening mammogram. Views obtained: bilateral craniocaudal and bilateral mediolateral oblique. Computer Aided Detection was performed. Mammogram Findings: The present examination has been compared to prior imaging studies performed at [facility] on 12/29/2022, and at [facility] on 08/19/2021 and 10/29/2022. There are scattered areas of fibroglandular density. There is asymmetry in the inner breast on the craniocaudal view of theleft breast. There is no suspicious abnormality in the right breast. Impression: Asymmetry in the left breast requires additional evaluation. Diagnostic mammogram and possible ultrasound of the left breast are recommended at this time. OVERALL FINAL ASSESSMENT: BI-RADS CATEGORY 0: Incomplete: Need additional imaging evaluation. us Self Screening Mammogram IMG MAMMO PROCEDURES Fi nal Result from Last 3 Months or Most Recently Relevant to Health Maintenance [place] [employer] [place] ACCESS Quality Systems [place] Care Teams Home Care Specialist Relationship Specialty Start Date End Date Ceci Santiago MD PCP - General 07/12/17 Liliana Lucas MD Dermatology 11/07/22
--- OUTSIDE RECORDS SUMMARY | 2024-08-29 01:45 | XMS_ITS | Encounter Summary ---
Author Organization [facility] Address [address] [place] [address] Phone Care Team Providers Care Technical Designer Name Role Phone Ceci Santiago MD Primary Care Provider [phone] Liliana Lucas MD Unavailable [phone] Encounter Details Date Type Department Care Team (Latest Contact Info) Description 08/21/2017 Orders Only [facility] CONVERSION Scanning, Provider Social History Tobacco Use Types Packs/Day Years Used Date Smoking Tobacco: Never Assessed Comments Unknown Sex and Gender Information Value Date Recorded Sex Assigned at Not on file Legal Sex Female 6:41 AM PELLETIZER Gender Identity Female 03/26/2018 10:10 AM CDT Sexual Orientation Not on file documented as of this encounter Plan of Treatment Not on file documented as of this encounter Procedures Procedure Name Priority Date/Time Associated Diagnosis Comments VASCULAR LABORATORY REPORT 08/21/2017 1:53 PM PELLETIZER documented in this encounter Results * VASCULAR LABORATORY REPORT (08/21/2017 1:53 PM PELLETIZER) Anatomical Region Laterality Modality Ultrasound us Provider Scanning CV VASCULAR PROCEDURES Final R esult documented in this encounter Visit Diagnoses Not on filedocumented in this encounter Care Teams Technical Designer Relationship Specialty Start Date End Date Ceci Santiago MD PCP - General 07/12/17 Liliana Lucas MD Dermatology 11/07/22 documented as of this encounter
--- OUTSIDE RECORDS SUMMARY | 2024-08-29 01:45 | XMS_ITS | Referral Summary ---
Author Organization [facility] Address [address] [place] [address] Care Team Providers Care Bulb Grader Name Role Phone Ceci Santiago MD Primary Care Provider [phone] Liliana Lucas MD Unavailable [phone] Encounters Date Type Department Care Team Description 08/24/2024 12:[address] LANDSCAPE ARCHITECT - 08/24/2024 11:[address] LANDSCAPE ARCHITECT Hospital Encounter [facility] [address] [place] [id number] Left wrist pain Discharge Disposition: Discharge to home or self care 08/24/2024 1:[address] LANDSCAPE ARCHITECT Office Visit [facility] Orthopaedic Surgery [id number] [place] [address] 2nd [address] [place] [phone] Herb Morley MD Left wrist pain (Primary Dx) 07/01/2024 7:[address] LANDSCAPE ARCHITECT - 07/01/2024 11:[address] LANDSCAPE ARCHITECT Hospital Encounter [facility] [address] [place] [address] Intra-articular fracture of distal end of left radius with volar angulation, initial encounter Discharge Disposition: Discharge to home or self care 07/01/2024 9:[address] LANDSCAPE ARCHITECT Therapy [facility] Physical Therapy [address] [place] [address] [facility] 6th [place] [address] [place] [address] Laurie Peng, DPT Intra-articular fracture of distal end of left radius with volar angulation with routine healing, subsequent encounter (Primary Dx) 07/01/2024 8:[address] LANDSCAPE ARCHITECT Office Visit [facility] [address] [facility] 6th [place] [address] [place] [address] Herb Morley MD Intra-articular fracture of distal end of left radius with volar angulation, initial encounter (Primary Dx) 06/28/2024 Orders Only [facility] Orth[facility] Surgery [address] [facility] 6th [address] [place] [address] Herb Morley MD Intra-articular fracture of distal end of left radius with volar angulation, initial encounter (Primary Dx) from Last 3 Months Allergies Active Allergy Reactions Criticality Noted Date [...] Deficiency Prevention Take 1 tablet by mouth mannequin coloring artist before breakfast Active Longs Thyroid 90 mg tablet Take 1 tablet (90 mg total) by mouth mannequin coloring artist before breakfast 05/04/20 24 025 Discontinued Active Problems Problem Noted Date Diagnosed Date Closed fracture of left distal radius 05/04/2024 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 023 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 04/13/2018 Overview (04/13/2018): Added automatically from request for surgery [id number] Social History Tobacco Use Types Packs/Day Years [...] on file Legal Sex Female 6:[address] LANDSCAPE ARCHITECT Gender Identity Female 03/26/2018 10:10 AM CDT Sexual Orientation Not on file Last Filed Vital Signs Vital Sign Reading [...] 05/10/2024 6:05 AM CDT Plan of Treatment Not on file Medical Devices Implanted Type Area Pediatric Physician Assistant Device Identifier Shelf Expiration Date Model / Serial / Lot Allosource Cubes Graft 15ml Bone Cancellous [id number] - [id number] - [id number] Implanted:Qty: 1 on 05/10/2024 by Herb Morley MD at [facility] Graft Left: Radius Allosource 04/20/2027 [id number] / [id number] / [id number] [employer] Plate Bone Avulsion Hook 0.8mm Titanium Nonsterile [id number] - [id number] Implanted:Qty: 1 on 05/10/2024 by Herb Morley MD at [facility] Plate Left: Radius [employer] [id number] / / [employer] Eviva 13cm Identifier Biopsy Site [id number]-16 - [id number] Implanted:Qty: 1 on 01/05/2023 at [facility] Right: Breast [employer] [id number] 08/07/2023 [facility] -13 / / [id number] [employer] Acu-Loc 2 [id number] Variable Angle Radius Left Volar Distal Narrow 70-0358 - [id number] Implanted:Qty: 1 on 05/10/2024 by Herb Morley MD at [facility] Left: Radius [employer] 70-0358 / / [employer] 3.5mm 12mm Hexalobe Screw Bone Titanium Nonsterile Small Fragment [id number] - [id number] Implanted:Qty: 3 on 05/10/2024 by Herb Morley MD at [facility] Left: Radius [employer] [id number] / / [employer] 2.3mm 18mm Lock Hexagonal Cortical Full Thread Screw Bone Co-T2318 - [id number] Implanted:Qty: 1 on 05/10/2024 by Hebr Morley MD at [facility] Left: Radius [employer] CO-T2318 / / [employer] 2.3mm 20mm Lock Hexagonal Cortical Full Thread Screw Bone Co-T2320 - [id number] Implanted:Qty: 2 on 05/10/2024 by Herb Morley MD at [facility] Left: Radius [employer] CO-T2320 / / [employer] 2.3mm 16mm Lock Hexagonal Cortical Full Thread Screw Bone Co-T2316 - [id number] Implanted:Qty: 1 on 05/10/2024 by Herb Morley MD at [facility] Left: Radius [employer] CO-T2316 / / [employer] 2.3mm 18mm Nontoggle Hexagonal Cortical Screw Bone Titanium Co-N2318 - [id number] Implanted:Qty: 1 on 05/10/2024 by Herb Morley MD at [facility] Left: Radius [employer] CO-N2318 / / Procedures Procedure Name Priority Date/Time Associated Diagnosis Comments XR WRIST LEFT 3 OR MORE VIEWS Schedule Routine, Read Routine (OP Routine) 08/24/2024 12:[address] LANDSCAPE ARCHITECT Left wrist pain XR WRIST LEFT 3 OR MORE VIEWS Schedule Routine, Read Routine (OP Routine) 07/01/2024 7:[address] LANDSCAPE ARCHITECT Intra-articular fracture of distal end of left radius with volar angulation, initial encounter SCREENING MAMMOGRAM BILATERAL W CHON Schedule Routine, Read Routine (OP Routine) 12/10/2023 10:35 AM CDT Screening mammogram, encounter for from Last 3 Months or Most Recently Relevant to Health Maintenance Results * X-ray wrist left 3+ views (08/24/2024 12:[address] LANDSCAPE ARCHITECT) Anatomical Region Laterality Modality Upper Extremities, Wrist Left Compute d Radiography 08/24/2024 12:[address] LANDSCAPE ARCHITECT Impressions 08/24/2024 12:[address] LANDSCAPE ARCHITECT 1. Healed, internally fixated distal left radius fracture 2. Polyarticular osteoarthritis of the left wrist Electronically signed by: Мария Vegas MD Narrative 08/24/2024 12:[address] LANDSCAPE ARCHITECT EXAMINATION: XR WRIST LEFT 3 OR MORE [...] wrist left 3+ views (07/01/2024 7:[address] LANDSCAPE ARCHITECT) Anatomical Region Laterality Modality Upper Extremities, Wrist Left Compute d Radiography 07/01/2024 7:[address] LANDSCAPE ARCHITECT Impressions 07/01/2024 7:[address] LANDSCAPE ARCHITECT 1. Healing reduced and internally fixated comminuted intra-articular distal left radius fracture. 2. Unchanged mild left base of thumb osteoarthritis. Electronically signed by: Kp Walker M.D. Narrative 07/01/2024 7:[address] LANDSCAPE ARCHITECT EXAMINATION: XR WRIST LEFT 3 OR MORE [...] unchanged. Mild soft tissue swelling. Procedure Note Deejay Walker, Kp Guzmán MD - 07/01/2024 EXAMINATION: XR WRIST LEFT [...] compared to prior imaging studies performed at [facility] on 12/29/2022, and at [facility] on 08/19/2021 and 10/29/2022. There [...] compared to prior imaging studies performed at [facility] on 12/29/2022, and at [facility] on 08/19/2021 and 10/29/2022. There [...] Most Recently Relevant to Health Maintenance Insurance CHOICE [place]F [place] eVenues [place] Care Teams Bulb Grader Relationship Specialty Start Date End Date Ceci Santiago MD PCP - General 07/12/17 Liliana Lucas MD Dermatology 11/07/22
[2024-09-05 10:44] VITALS: BMI 41.6
[2024-09-12 09:14] VITALS: BP 178/87; PULSE 72; RESP 18; TEMP 36.1; O2SAT 98
[2024-09-12 09:27] LABS: Glucose Point of Care 147 mg/dl (65-105)
[2024-09-12] MEDS: LACTATED RINGERS 1,000 ML 150 ML IV CONT (09:27)
--- NOTE | 2024-09-12 09:31 | WPDANESEPPF ---
Anes - Initial Pre Proc Eval Procedure: Operation Date: 09/12/24 10:30 Proposed Procedures p Screening Colonoscopy - Jeffrey Simpson MD Date/Time: 09/12/24 09:31 Surgeon: Jeffrey Simpson MD Pre Op Diagnosis: Screening for malignant neoplasm of colon Patient Data Age: 64 Gender: F Height: 1.65 m Weight: 112.8 kg Last Vital Signs Temp 36.1 C L 09/12/24 09:14 Pulse 72 09/12/24 09:14 Resp 18 09/12/24 09:14 BP 178/87 H 09/12/24 09:14 Pulse Ox 98 09/12/24 09:14 O2 Del Method Room Air 09/12/24 09:14 Allergies Allergy/AdvReac Type Severity Reaction Status Date / Time latex AdvReac Mild RASH Verified 09/12/24 09:06 Sulfa (Sulfonamide AdvReac Mild Rash Verified 09/12/24 09:06 Antibiotics) flu shots Allergy Severe Anaphylaxis Uncoded 09/12/24 09:06 Home Medications ?Medication ?Instructions ?Recorded ?Confirmed ?Type magnesium glycinate 100 mg (as 250 mg PO DAILY 05/22/22 09/12/24 History glycinate) tablet omega-3 fatty acids-fish oil 360 1 cap PO BID 05/22/22 09/12/24 History mg-1,200 mg capsule (Fish Oil) lactobacillus combination no.4 3 3,000 mmu cells PO DAILY 08/25/23 09/12/24 History billion cell capsule (Probiotic) ergocalciferol (vitamin D2) 1,250 50,000 unit PO WEEKLY #12 caps 09/08/23 08/30/24 Rx mcg (50,000 unit) capsule (Vitamin D2) blood-glucose meter (OneTouch #1 ea 01/19/24 08/30/24 Rx Ultra2 Meter) lancets 33 gauge (OneTouch Delica #200 ea 01/19/24 08/30/24 Rx Plus Lancet) lancing device with lancets kit #1 ea 01/19/24 08/30/24 Rx (OneTouch Delica Plus Lancing Device kit) multivitamin (Daily Multi-Vitamin 1 tablet PO DAILY 05/03/24 09/12/24 History tablet) Tirosint 137 mcg capsule 137 mcg PO DAILY #90 caps 06/02/24 09/12/24 Rx (levothyroxine) blood sugar diagnostic (OneTouch #200 ea 06/02/24 08/30/24 Rx Ultra Test strips) dapagliflozin propanediol 5 mg 5 mg PO QAM #90 tabs 06/02/24 09/12/24 Rx tablet (Farxiga) Laboratory Tests 09/12/24 09:23 POC Capillary Glucose 147 H mg/dl (65-105) Patient hx anesthesia problems: none Family hx anesthesia problems: none Results Review: All pre-operative results and documents have been reviewed as part of the pre-operative evaluation. [facility] Past Medical History Medical History (Updated 09/12/24 @ 09:32 by Luis Evangelista MD) Morbid obesity Malignant melanoma of left forearm Melanoma H/O bone density study (~2020) Normal colonoscopy (~2014) Ovarian cyst (~1979) Cervical cancer Ovarian cancer (~1991) Mixed hyperlipidemia Hypothyroidism (~1991) Type 2 diabetes mellitus without complication, without long-term current use of insulin Vitamin D deficiency Surgical History Surgical History History of open reduction and internal fixation (ORIF) procedure Left wrist fracture 04/2024 at [facility] Hx of cholecystectomy (~2008) History of mandibular surgery (~1995) History of hysterectomy (~1991) Hx of appendectomy (~1979) Family History Family History Mother Diabetes mellitus Hypertension Heart disease Thyroid disease Father Depression Diabetes mellitus Heart disease Dementia Sibling Heart disease Hypertension Grandparent Depression Heart disease Hypertension Other Family history of arthritis Social History Social History Social History: Never smoker. She does not use alcohol, marijuana, or illicit substances. Smoking status: Never smoker Second hand tobacco smoke exposure: No Alcohol intake: never Substance use: never Substance use type: does not use Do You Feel Safe in your Home?: Yes Lack of Transportation: No Lack of Food: Never True Current Housing: I Have Housing Concerned About Future Housing: No Difficulty Paying Gas/Electric Bills: No Difficulty Paying for Meds: No Currently Unemployed: No Education: Associate Degree Difficulty w/ Childcare or Family Care: No Living arrangements: with family Additional living arrangements comments: Occupation/Education: retired Gender identity (if verbalized by the patient): Female Spiritual care concerns: No Anes - Eval Final PreProcedure Day of Procedure 09/12/24 09:31 Patient weight: morbidly obese Heart: regular rate and rhythm Lungs: clear to auscultation Airway: Mallampati scale class III, special considerations poor opening and other (TMJ surgery) Neurological: alert and oriented Last oral intake: >/= 8 hours ASA classification: III Emergent: no Anesthetic plan: proceed Anesthesia type and monitoring: general GIVS and standard monitoring Results Review: All pre-operative results and documents have been reviewed as part of the pre-operative evaluation. Informed Consent: The patient's anesthetic plan and its attendant risks and benefits were discussed with the patient/family/POA. Questions were solicited and answers provided to the satisfaction of the patient/family/POA.
--- NOTE | 2024-09-12 10:02 | PM.HPGS ---
History of Present Illness History of Present Illness Consent: Risks, benefits, and alternatives have been discussed and questions answered. Patient agrees to proceed with procedure. Chief complaint: Screening for malignant neoplasm of colon Narrative: Estela Arias is a 64 year old female here for screening colonoscopy, last one 9-10 years ago Review of Systems Review of Systems: All systems reviewed & are unremarkable except as noted in HPI and below PMFSH Past Medical History Medical History (Updated 09/12/24 @ 10:02 by Jeffrey Simpson MD) Colon cancer screening Morbid obesity Malignant melanoma of left forearm Melanoma H/O bone density study (~2020) Normal colonoscopy (~2014) Ovarian cyst (~1979) Cervical cancer Ovarian cancer (~1991) Mixed hyperlipidemia Hypothyroidism (~1991) Type 2 diabetes mellitus without complication, without long-term current use of insulin Vitamin D deficiency Surgical History Surgical History History of open reduction and internal fixation (ORIF) procedure Left wrist fracture 04/2024 at [facility] Hx of cholecystectomy (~2008) History of mandibular surgery (~1995) History of hysterectomy (~1991) Hx of appendectomy (~1979) Family History Family History Mother Diabetes mellitus Hypertension Heart disease Thyroid disease Father Depression Diabetes mellitus Heart disease Dementia Sibling Heart disease Hypertension Grandparent Depression Heart disease Hypertension Other Family history of arthritis Social History Social History Social History: Never smoker. She does not use alcohol, marijuana, or illicit substances. Smoking status: Never smoker Second hand tobacco smoke exposure: No Alcohol intake: never Substance use: never Substance use type: does not use Do You Feel Safe in your Home?: Yes Lack of Transportation: No Lack of Food: Never True Current Housing: I Have Housing Concerned About Future Housing: No Difficulty Paying Gas/Electric Bills: No Difficulty Paying for Meds: No Currently Unemployed: No Education: Associate Degree Difficulty w/ Childcare or Family Care: No Living arrangements: with family Additional living arrangements comments: Occupation/Education: retired Gender identity (if verbalized by the patient): Female Spiritual care concerns: No Meds Home Medications and Allergies Home Medications ?Medication ?Instructions ?Recorded ?Confirmed ?Type magnesium glycinate 100 mg (as 250 mg PO DAILY 05/22/22 09/12/24 History glycinate) tablet omega-3 fatty acids-fish oil 360 1 cap PO BID 05/22/22 09/12/24 History mg-1,200 mg capsule (Fish Oil) lactobacillus combination no.4 3 3,000 mmu cells PO DAILY 08/25/23 09/12/24 History billion cell capsule (Probiotic) ergocalciferol (vitamin D2) 1,250 50,000 unit PO WEEKLY #12 caps 09/08/23 08/30/24 Rx mcg (50,000 unit) capsule (Vitamin D2) blood-glucose meter (Diet TVTouch #1 ea 01/19/24 08/30/24 Rx Ultra2 Meter) lancets 33 gauge (Scodix #200 ea 01/19/24 08/30/24 Rx Plus Lancet) lancing device with lancets kit #1 ea 01/19/24 08/30/24 Rx (Revneticsuch Delblabfeed Plus Lancing Device kit) multivitamin (Daily Multi-Vitamin 1 tablet PO DAILY 05/03/24 09/12/24 History tablet) Tirosint 137 mcg capsule 137 mcg PO DAILY #90 caps 06/02/24 09/12/24 Rx (levothyroxine) blood sugar diagnostic (Diet TVTouch #200 ea 06/02/24 08/30/24 Rx Ultra Test strips) dapagliflozin propanediol 5 mg 5 mg PO QAM #90 tabs 06/02/24 09/12/24 Rx tablet (Farxiga) Allergies Allergy/AdvReac Type Severity Reaction Status Date / Time latex AdvReac Mild RASH Verified 09/12/24 09:06 Sulfa (Sulfonamide AdvReac Mild Rash Verified 09/12/24 09:06 Antibiotics) flu shots Allergy Severe Anaphylaxis Uncoded 09/12/24 09:06 Vital Signs Vital Signs - 24 hr 09/12/24 09:14 Temperature 97 F L Pulse Rate 72 Respiratory Rate 18 Blood Pressure 178/87 H Pulse Oximetry 98 Oxygen Delivery Room Air Exam Const: General: comfortable and no acute distress HENMT: Face/Nose/Sinus: Normal nares present Eyes: General: appearance normal, both eyes and all related structures Neck: Neck: no JVD Resp: Auscultation: clear to auscultation bilaterally Cardio: Rate: regular rate Rhythm: regular rhythm GI: Inspection: non-distended GI Palp: Yes Soft to palpation Skin: General skin exam: normal color Neuro: Speech: normal speech Extrem: General: normal to inspection Psych: Mental Status: mental status grossly normal Assessment and Plan Assessment and plan (1) Colon cancer screening: Code(s): Z12.11 - Encounter for screening for malignant neoplasm of colon Status: Acute Assessment and Plan: colonoscopy
[2024-09-12 10:23] VITALS: BP 129/70; PULSE 66; RESP 24; O2SAT 95
[2024-09-12 10:33] VITALS: BP 138/72; PULSE 63; RESP 22; O2SAT 95
[2024-09-12 10:43] VITALS: BP 140/70; PULSE 48; RESP 16; O2SAT 98
== END 2024-09-12 10:52 | disposition home or self-care (01) ==
PROVIDERS: PCP Family Medicine; Referring Provider Student in an Organized Health Care Education/Training Program; Visit Provider Internal Medicine Gastroenterology
PROC: 0DJD8ZZ Inspection of Lower Intestinal Tract, Via Natural or Artificial Opening Endoscopic (ICD-10-PCS; CPT 45378; principal; 2024-09-12 10:30)
DX: Z12.11 Encounter for screening for malignant neoplasm of colon (principal); K64.8 Other hemorrhoids; E11.9 Type 2 diabetes mellitus without complications; E66.01 Morbid (severe) obesity due to excess calories; Z68.41 Body mass index [BMI] 40.0-44.9, adult
CPT/HCPCS: 45378; 82948; J2003; J2704; J7120

== ENCOUNTER 2024-12-20 12:22 | Outpatient (CLI) | payer BC, SELFPAY ==
--- NOTE | ~2024-12-20 | DEXA_ITS ---
Bone Density Report Name: BALBIR GALLAGHER Age: 64 Sex: Female Ethnicity: White Date of : 1960 Indication: postmenopausal; screening for osteoporosis; parental hip fracture; height loss; cancer; hysterectomy; Referring Provider: TERRY OCAMPO Study: Bone densitometry was performed. Exam Date: December 20, 2024 Accession number: [id number] Bone Density: Region BMD T-score Z-score Classification AP Spine(L1, L2, L3) 1.017 0.0 1.5 Normal Femoral Neck (Left) 0.754 -0.9 0.5 Normal Total Hip (Left) 0.929 -0.1 1.0 Normal Femoral Neck (Right) 0.806 -0.4 1.0 Normal Total Hip (Right) 0.976 0.3 1.4 Normal Total Hip Mean 0.953 0.1 1.2 Normal World Health Organization criteria for BMD impression classify patients as: Normal (T-score at or above -1.0), Osteopenia (T-score between -1.0 and -2.5), or Osteoporosis (T-score at or below -2.5). 10-year Fracture Risk: FRAX not reported because: All T-scores for Spine Total, Hip Total, Femoral Neck at or above -1.0 Clinical Information Provided by Patient: Parent has had a hip fracture Has used the following medications: Vitamin D Has the following medical conditions: Cancer, Hysterectomy Patient maximum height was 66 Menopause Age: 57 Drinks caffeinated beverages Onset of menses at age 15 Number of children 3 Impression: The patient has normal bone mass. The patient has risk factors, including: parental hip fracture. Discussion: BONE DENSITY IS ABOVE THE MINIMUM DESIRABLE LEVEL AT ALL SKELETAL SITES TESTED. This patient?s bone mineral density is above the minimum desirable level (T-score -1.0 or better) at all sites measured. The patient should follow a healthful lifestyle (good nutrition with adequate calcium and vitamin D, and appropriate weight-bearing exercise). Follow-Up: Consider repeating this study in 5 years or sooner if there is some new clinical indication. Reported by: TE on 12/20/2024 1:27:00 PM. Reviewed, dictated and finalized at location A.
--- OUTSIDE RECORDS SUMMARY | 2024-12-20 13:14 | XMS_ITS | Encounter Summary ---
Author Organization [facility] Address [address] [place] [address] Phone Care Team Providers Care Track Vehicle Repairer Name Role Phone Ceci Santiago MD Primary Care Provider [phone] Liliana Lucas MD Unavailable [phone] Encounter Details Date Type Department Care Team (Latest Contact Info) Description 08/21/2017 Orders Only [facility] CONVERSION Scanning, Provider Social History Tobacco Use Types Packs/Day Years Used Date Smoking Tobacco: Never Assessed Comments Unknown Sex and Gender Information Value Date Recorded Sex Assigned at Not on file Legal Sex Female 6:41 AM EXTENSION SERVICE SPECIALIST Gender Identity Female 03/26/2018 10:10 AM CDT Sexual Orientation Not on file documented as of this encounter Plan of Treatment Not on file documented as of this encounter Procedures Procedure Name Priority Date/Time Associated Diagnosis Comments VASCULAR LABORATORY REPORT 08/21/2017 1:53 PM EXTENSION SERVICE SPECIALIST documented in this encounter Results * VASCULAR LABORATORY REPORT (08/21/2017 1:53 PM EXTENSION SERVICE SPECIALIST) Anatomical Region Laterality Modality Ultrasound us Provider Scanning CV VASCULAR PROCEDURES Final R esult documented in this encounter Visit Diagnoses Not on filedocumented in this encounter Care Teams Track Vehicle Repairer Relationship Specialty Start Date End Date Ceci Santiago MD PCP - General 07/12/17 Liliana Lucas MD Dermatology 11/07/22 documented as of this encounter
--- OUTSIDE RECORDS SUMMARY | 2024-12-20 13:14 | XMS_ITS | Clinical Summary ---
Author Organization [facility] Address [address] [place] [address] Care Team Providers Care Register In Chancery Name Role Phone Ceci Santiago MD Primary Care Provider [phone] Liliana Lucas MD Unavailable [phone] Allergies Active Allergy Reactions Criticality Noted Date Comments Adhesive Tape-Silicones Rash Medium 06/09/2018 Influenza Virus Vaccines Other (See comments) Low 05/10/2024 WHITE BLOOD CELL COUNT ELEVATED EXTREMELY HIGH REQUIRING HOSPITALIZATION Latex Rash Medium 08/24/2017 Sulfa (Sulfonamide Antibiotics) Rash Medium 08/24/2017 Medications VITAMIN D2 50,000 unit capsuleIndicati ons:Vitamin D Deficiency Take 1 capsule (50,000 Units total) by mouth once a week thursday 8 Active Lactobac no.41/Bifidobac t no.7 (PROBIOTIC-10 ORAL)Indication s:health Take 1 tablet by mouth daily before breakfast Active turmeric root extract 500 mg capsuleIndicati ons:health Take 1,000 mg by mouth daily after lunch Active UNABLE TO FINDIndications :pre Take 2 each by mouth every morning Med Name: berberine Active vitamin E 200 unit capsuleIndicati ons:health Take 1 capsule (200 Units total) by mouth daily after lunch Active ascorbic acid (ascorbic acid with stephen hips) 500 mg tablet,chewable Indications:hea lth Take 1 tablet/chew tab (500 mg total) by mouth daily after lunch Active zinc 50 mg tabletIndicatio ns:health Take 1 capsule by mouth daily after lunch Active fish oil-dha-epa 1,200-144-216 mg capsuleIndicati ons:health Take 2 capsules by mouth daily after lunch Active multivitamin tabletIndicatio ns:Vitamin Deficiency Prevention 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 Active Active Problems Problem Noted Date Diagnosed Date Closed fracture of left distal radius 05/04/2024 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 023 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 04/13/2018 Overview (04/13/2018): Added automatically from request for surgery [id number] Surgical History Surgery Date Site/Laterality Comments VARICOSE [...] Vitamin D deficiency History of cervical cancer 1991 s/p T AH with BSO, chemo/radiation 1991 [...] Migraines 2010 Sleep apnea 2021 Autoimmune disease 2021 Cancer (HCC) Family History Medical History Relation Name [...] on file 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 Gender Identity Female 03/26/2018 10:10 AM CDT [...] 6:05 AM CDT Height 165.1 cm (5' 5) 05/10/2024 6:05 AM CDT Body Mass Index 43.27 05/10/2024 6:05 AM CDT Plan of Treatment Health Maintenance Due Date Last Done Comments Colon Cancer Screening-Colonoscopy 1960 Depression Screening 1960 Hepatitis C Screening 1960 DTaP/Tdap/Td Vaccine (1 - Tdap) 1973 Hepatitis B Screening 1980 Regular Well Visit/Exam 18-64 1980 Breast Cancer Screening-Mammogram 12/09/2024 12/10/2023, 10/29/2022, 08/19/2021, Additional history exists Influenza Vaccine (Season Ended) 2025 Zoster Vaccine Completed 05/04/2019, 02/07/2019 Pneumococcal vaccine <65 Aged Out No longer eligible based on patient's age to complete this topic Medical Devices Implanted Type Area Tank Crewmember Device Identifier Shelf Expiration Date Model / Serial / Lot Allosource Cubes Graft 15ml Bone Cancellous [id number] - [id number] - [id number] Implanted:Qty: 1 on 05/10/2024 by Herb Morley MD at [facility] Graft Left: Radius Allosource 04/20/2027 [id number] / [id number] / [id number] [employer] Plate Bone Avulsion Hook 0.8mm Titanium Nonsterile 7007-11942 - [id number] Implanted:Qty: 1 on 05/10/2024 by Herb Morley MD at [facility] Plate Left: Radius [employer] [id number] / / [employer] Eviva 13cm Identifier Biopsy Site [id number]-[id number] - [id number] Implanted:Qty: 1 on 01/05/2023 at [facility] Right: Breast [employer] [id number] 08/07/2023 SMARK-EVIVA -13 / / [id number] [employer] Acu-Loc 2 07a08zs Variable Angle Radius Left Volar Distal Narrow 70-0358 - [id number] Implanted:Qty: 1 on 05/10/2024 by Herb Morley MD at [facility] Medicine Left: Radius [employer] 70-0358 / / [employer] 3.5mm 12mm Hexalobe Screw Bone Titanium Nonsterile Small Fragment [id number] - [id number] Implanted:Qty: 3 on 05/10/2024 by Herb Morley MD at [facility] Left: Radius [employer] [id number] / / [employer] 2.3mm 18mm Lock Hexagonal Cortical Full Thread Screw Bone Co-T2318 - [id number] Implanted:Qty: 1 on 05/10/2024 by Herb Morley MD at [facility] Left: Radius [employer] CO-T2318 / / [employer] 2.3mm 20mm Lock Hexagonal Cortical Full Thread Screw Bone Co-T2320 - [id number] Implanted:Qty: 2 on 05/10/2024 by Herb Morley MD at [facility] Left: Radius [employer] CO-T2320 / / [employer] 2.3mm 16mm Lock Hexagonal Cortical Full Thread Screw Bone Co-T2316 - [id number] Implanted:Qty: 1 on 05/10/2024 by Herb Morley MD at [facility] Left: Radius [employer] CO-T2316 / / [employer] 2.3mm 18mm Nontoggle Hexagonal Cortical Screw Bone Titanium Co-N2318 - [id number] Implanted:Qty: 1 on 05/10/2024 by Herb Morley MD at [facility] Left: Radius [employer] CO-N2318 / / Procedures Procedure Name Priority Date/Time Associated Diagnosis Comments SCREENING MAMMOGRAM BILATERAL W CHON Schedule Routine, Read Routine (OP Routine) 12/10/2023 10:35 AM CDT Screening mammogram, encounter for from Last 3 Months or Most Recently Relevant to Health Maintenance Results * Screening Mammogram Bilateral W Chon (12/10/2023 10:35 AM CDT) Anatomical Region Laterality Modality Breast Bilateral Mammography Narrative 12/11/2023 4:39 PM CDT Mammogram Technique: Bilateral Digital Breast Tomosynthesis, Bilateral C-view 2D Screening mammogram. Views obtained: bilateral craniocaudal and bilateral mediolateral oblique. Computer Aided Detection was performed. Mammogram Findings: The present examination has been compared to prior imaging studies performed at [facility] on 12/29/2022, and at [facility] on 08/19/2021 and 10/29/2022. There are scattered [...] compared to prior imaging studies performed at [facility] on 12/29/2022, and at [facility] on 08/19/2021 and 10/29/2022. There are scattered [...] [place] Care Teams Register In Chancery Relationship Specialty Start Date End Date Ceci Santiago MD PCP - General 07/12/17 Liliana Lucas MD Dermatology 11/07/22
--- OUTSIDE RECORDS SUMMARY | 2024-12-20 13:14 | XMS_ITS | Referral Summary ---
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 04/13/2018 Overview (04/13/2018): Added automatically from request for surgery [id number] Social History Tobacco Use Types Packs/Day Years [...] on file 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 Gender Identity Female 03/26/2018 10:10 AM CDT [...] on file Medical Devices Implanted Type Area Program Officer Device Identifier Shelf Expiration Date Model / Serial / Lot Allosource Cubes Graft 15ml Bone Cancellous [id number] - [id number] - [id number] Implanted:Qty: 1 on 05/10/2024 by Herb Morley MD at [facility] Graft Left: Radius Allosource 04/20/2027 [id number] / [id number] / [id number] [employer] Plate Bone Avulsion Hook 0.8mm Titanium Nonsterile 7005-95113 - [id number] Implanted:Qty: 1 on 05/10/2024 by Herb Morley MD at [facility] Plate Left: Radius [employer] 7005-31403 / / [employer] Eviva 13cm Identifier Biopsy Site Qgomq-Tbcyl-25 - [id number] Implanted:Qty: 1 on 01/05/2023 at [facility] Right: Breast [employer] [id number] 08/07/2023 [facility]-EVIVA -13 / / [id number] [employer] Inc Acu-Loc 2 49w81tu Variable Angle Radius Left Volar Distal Narrow 70-0357 - [id number] Implanted:Qty: 1 on 05/10/2024 by Herb Morley MD at [facility] Left: Radius [employer] 70-0358 / / [employer] 3.5mm 12mm Hexalobe Screw Bone Titanium Nonsterile Small Fragment [id number] - [id number] Implanted:Qty: 3 on 05/10/2024 by Herb Morley MD at [facility] Medicine Left: Radius [employer] [id number] / / [employer] 2.3mm 18mm Lock Hexagonal Cortical Full Thread Screw Bone Co-T2318 - [id number] Implanted:Qty: 1 on 05/10/2024 by Herb Morley MD at [facility] Left: Radius [employer] CO-T2318 / / [employer] 2.3mm 20mm Lock Hexagonal Cortical Full Thread Screw Bone Co-T2320 - [id number] Implanted:Qty: 2 on 05/10/2024 by Herb Morley MD at [facility] Left: Radius [employer] CO-T2320 / / [employer] 2.3mm 16mm Lock Hexagonal Cortical Full Thread Screw Bone Co-T2316 - [id number] Implanted:Qty: 1 on 05/10/2024 by Herb Morley MD at [facility] Left: Radius [employer] CO-T2316 / / [employer] 2.3mm 18mm Nontoggle Hexagonal Cortical Screw Bone Titanium Co-N2318 - [id number] Implanted:Qty: 1 on 05/10/2024 by Herb Morley MD at [facility] Left: Radius [employer] CO-N2318 / / Procedures Procedure Name Priority Date/Time Associated Diagnosis Comments SCREENING MAMMOGRAM BILATERAL W CAMILO Schedule Routine, Read Routine (OP Routine) 12/10/2023 10:35 AM CDT Screening mammogram, encounter for from Last 3 Months or Most Recently Relevant to Health Maintenance Results * Screening Mammogram Bilateral W Camilo (12/10/2023 10:35 AM CDT) Anatomical Region Laterality Modality Breast Bilateral Mammography Narrative 12/11/2023 4:39 PM CDT Mammogram Technique: Bilateral Digital Breast Tomosynthesis, Bilateral C-view 2D Screening mammogram. Views obtained: bilateral craniocaudal and bilateral mediolateral oblique. Computer Aided Detection was performed. Mammogram Findings: The present examination has been compared to prior imaging studies performed at [facility] on 12/29/2022, and at [facility] on 08/19/2021 and 10/29/2022. There are [...] compared to prior imaging studies performed at [facility] on 12/29/2022, and at [facility] on 08/19/2021 and 10/29/2022. There are [...] BL [place]F [place] Care Teams Trainer Relationship Specialty Start Date End Date Ceci Santiago MD PCP - General 07/12/17 Liliana Lucas MD Dermatology 11/07/22
== END 2024-12-20 12:23 | disposition home or self-care (01) ==
PROVIDERS: PCP Family Medicine; Visit Provider Student in an Organized Health Care Education/Training Program
DX: Z78.0 Asymptomatic menopausal state (principal)
CPT/HCPCS: 77080